=== PATIENT | male | born 1965 | race Caucasian/White ===

== ENCOUNTER 2022-07-18 15:12 | Emergency (ER) | payer BC ==
[~2022-07-18] VITALS: Ht 182.9 cm; Wt 97.5 kg
[2022-07-18 15:12] VITALS: BP_SYST 125
--- NOTE | 2022-07-18 15:15 | NUR ---
Patient triaged and placed in waiting room. VSS and patient appears in no acute distress at this time. Accompanied by FRIENDS, awaiting available bed, and MD notified of need for MSE.
--- NOTE | 2022-07-18 15:50 | NUR ---
DR. HANKS EXAMINING PT
[2022-07-18] MEDS ORDERED: ASPIRIN 81 MG TAB.CHEW PO ONE (16:00)
[2022-07-18 16:28] LABS: BASOPHILS % (AUTO) 0.8 % (0.0-2.0); EOSINOPHILS # (AUTO) 0.3 K/uL (0.0-0.4); EOSINOPHILS % (AUTO) 4.4 % (0.0-4.0); HEMATOCRIT 37.8 % (36-54); HEMOGLOBIN 12.9 g/dL (14.0-18.0); LYMPHOCYTES # (AUTO) 1.4 K/uL (1.0-5.5); LYMPHOCYTES % (AUTO) 23.1 % (20.5-51.5); MEAN CORPUSCULAR HEMOGLOBIN 30 pg (27-31); MEAN CORPUSCULAR HGB CONC 34 % (32-36); MEAN CORPUSCULAR VOLUME 87 fL (79.0-98.0); MONOCYTES # (AUTO) 0.5 K/uL (0.0-1.0); MONOCYTES % (AUTO) 8.4 % (1.7-9.3); NEUTROPHILS # (AUTO) 3.7 K/uL (1.8-7.7); NEUTROPHILS % (AUTO) 63.3 % (40.0-70.0); PLATELET COUNT (AUTO) 284 K/uL (130-430); RED BLOOD CELL COUNT(AUTO) 4.33 MIL/uL (4.2-6.2); RED CELL DISTRIBUTION WIDTH 14.4 % (9.0-15.0); WHITE BLOOD COUNT (AUTO) 5.9 K/uL (4.8-10.8)
--- NOTE | 2022-07-18 17:02 | NUR ---
Placed in room 01 . Placed on manager cardiac, blood pressure machine and pulse oximeter. To gown for exam. Side rails up. Report given to RASHI PARRA.
[2022-07-18 17:11] LABS: ANION GAP 6 (5-15); CALCIUM 9.7 mg/dL (8.4-11.0); CHLORIDE 103 mmol/L (98-107); CREATININE 0.96 mg/dL (0.55-1.30); GLUCOSE 102 mg/dL (70-99); UREA NITROGEN, BLOOD 19 mg/dL (8-21)
[2022-07-18 17:19] LABS: ALANINE AMINOTRANSFERASE 33 U/L (12-78); ALBUMIN 3.8 g/dL (3.4-4.8); ASPARTATE AMINOTRANSFERASE 31 U/L (10-37); TOTAL BILIRUBIN 0.3 mg/dL (0.0-1.0)
[2022-07-18 17:22] LABS: GFR AFRICAN AMERICAN 105 mL/min (>90)
--- NOTE | 2022-07-18 17:26 | NUR ---
PATIENT FOUND IN BED AAOX4 SPEECH CLEAR AND COHERENT, C/O CHEST PAIN STARTED EARLIER, TOOK HIS OWN NITRO WITH NO CHANGES, ON TECHNICAL SERVICES CONSULTANT, DENIES PAIN AT THIS TIME, AWAITING FOR EDP FOR DISPOSITION.
--- NOTE | 2022-07-18 18:24 | NUR ---
PT MOVED TO H1, PT IS AOX4, FAMILY PRESENT, PT DENIES CP
[2022-07-18 19:26] VITALS: BP_SYST 130
--- NOTE | 2022-07-18 19:26 | NUR ---
Patient given written and verbal discharge instructions and verbalizes understanding. ER MD discussed with patient the results and treatment provided. Patient in stable condition. ID arm band removed.No Rx given. Patient educated on pain management and to follow up with PMD. Opportunity for questions provided and answered.
[2022-07-19] MEDS ORDERED: NALOXONE HCL 2 MG/2 ML SYR ONE (03:28)
[2022-07-19] MEDS ORDERED: HALOPERIDOL LACTATE 5 MG/ML VIAL ONE (03:36)
== END 2022-07-18 19:26 | disposition home or self-care (01) ==
LOC: SED 15:12
DX: R07.9 Chest pain, unspecified (principal); I10 Essential (primary) hypertension; E78.5 Hyperlipidemia, unspecified; F17.200 Nicotine dependence, unspecified, uncomplicated; Z79.899 Other long term (current) drug therapy
CPT/HCPCS: 36415; 71045; 80053; 84484; 85025; 93005; 99285; J1630; J2310